=== PATIENT | male | born 1970 | race Two or more races ===

== ENCOUNTER 2018-03-08 21:32 | Emergency (ER) | payer SELFPAY ==
[2018-03-08] MEDS: cloNIDine HCL 0.1 MG TABLET PO (22:14)
[2018-03-08] MEDS: OXYMETAZOLINE 0.05% NASAL SPRAY 30ML BOTTLE. NS ×2 (22:14→22:22)
== END 2018-03-08 22:23 | disposition home or self-care (01) ==
LOC: ER 21:32
DX: R04.0 Epistaxis (principal); I10 Essential (primary) hypertension
CPT/HCPCS: 99284